=== PATIENT | male | born 2000 | race Caucasian/White ===

== ENCOUNTER 2024-07-01 01:17 | Emergency (ER) | payer SELFPAY ==
[~2024-07-01] VITALS: Ht 177.8 cm; Wt 80.0 kg
[2024-07-01 01:25] VITALS: O2SAT 99
[2024-07-01] MEDS ORDERED: LIDO700A15 TP (04:10)
[2024-07-01] MEDS ORDERED: NAPR-1176 MT (04:10)
[2024-07-01] MEDS: ACETAMINOPHEN 500MG TABLET PO NR (04:42)
[2024-07-01] MEDS: ACETAMINOPHEN 500MG TABLET PO ONE (04:42)
[2024-07-01 06:06] VITALS: BP 127/82; PULSE 90; RESP 17; TEMP 36.7; O2SAT 99
== END 2024-07-01 06:09 | disposition home or self-care (01) ==
LOC: ER 01:25
DX: S00.81XA Abrasion of other part of head, initial encounter (principal); Z79.1 Long term (current) use of non-steroidal anti-inflammatories (NSAID); Y08.89XA Assault by other specified means, initial encounter; Y93.89 Activity, other specified; Y92.89 Other specified places as the place of occurrence of the external cause; Y99.8 Other external cause status
CPT/HCPCS: 99284